=== PATIENT | female | born 1955 | race Caucasian/White ===

== ENCOUNTER 2018-05-05 11:17 | Inpatient (IN) | payer MEDICARE ==
[~2018-05-05] VITALS: Ht 177.8 cm; Wt 90.3 kg
--- NOTE | ~2018-05-05 | HP ---
PATIENT: DOM MENDIOLA MEDICAL RECORD: [id number] ACCOUNT: [id number] LOCATION:[facility].2106 : 54 ADMISSION DATE: 05/06/18 PCP: LORAINE MONGE MD HISTORY AND PHYSICAL EXAMINATION CHIEF COMPLAINT: Abdominal pain. HISTORY OF PRESENT ILLNESS: A 62-year-old white female patient of mine seen in the clinic today for abdominal pain. The patient was actually seen by me in clinic last Saturday for routine followup, doing fine at that time. She did get a flu shot, went home, started feeling bad that evening. Reports nausea, vomiting, abdominal pain, fever up to 102 over the weekend. Pain has been off and on, not getting any better, still running fever of 102. She was seen at walk-in clinic yesterday. Flu was negative at that time. White count was normal. The patient was encouraged to push fluids and follow up with me today. This morning again, she is having headache, nausea, vomiting, running fever, although she was afebrile in clinic, so at this time, we will admit for further workup. PAST MEDICAL HISTORY: History of stroke, osteoarthritis, depression, hypertension, hyperlipidemia and type 2 diabetes. PAST SURGICAL HISTORY: The patient has had a total hysterectomy, had a colonoscopy in August, did show some diverticula. MEDICATIONS: Lisinopril with hydrochlorothiazide 20/25 one tab daily, Plavix 75 mg a day, Lipitor 40 mg a day, metformin 1000 mg twice a day, citalopram 40 mg a day, Victoza 1.8 mg every day IM, and aspirin 81 mg a day. ALLERGIES: BACTRIM. SOCIAL HISTORY: The patient is , nonsmoker. Lives with , has 2 children. No alcohol. FAMILY HISTORY: Nonsignificant. REVIEW OF SYSTEMS: Positive for fever, positive for chills. Positive for nausea, vomiting, abdominal pain. Negative for chest pain, shortness of breath, cough, or wheeze. PHYSICAL EXAMINATION: GENERAL: No acute distress. Does appear somewhat ill. HEENT: Normocephalic, atraumatic. NECK: Supple. LUNGS: Clear to auscultation bilaterally. CARDIOVASCULAR: Regular rate and rhythm, no murmur. ABDOMEN: Soft, diffuse tenderness to palpation. Bowel sounds hypoactive. MUSCULOSKELETAL: Right-sided weakness. SKIN: Petechia to right upper extremity. NEUROLOGIC: Awake, alert, oriented times 3. ASSESSMENT AND PLAN: 1. Abdominal pain. 2. Dehydration. 3. Fever. HISTORY AND PHYSICAL [id number] DOM MENDIOLA PLAN: Admit the patient to the hospital for observation and further workup as per orders. TRANSINT:[id number] Voice Confirmation ID: [id number] DOCUMENT ID: [id number] LORAINE MONGE MD at 1336 CC: [id number] DICTATION DATE: 05/05/18 1037 CLINICAL CARE MANAGER: 05/05/18 1111 DIS IN 05/07/18 [id number] [place] [address]
[2018-05-05 12:00] VITALS: BP 108/61
[2018-05-05 12:23] VITALS: BP 108/61; BMI 28.6
[2018-05-05 14:33] LABS: BASOPHILS 0 % (0-2); EOSINOPHILS 0.2 % (0-7); HEMATOCRIT 33.4 % (36.0-48.0); HEMOGLOBIN 11.4 g/dL (12-16); LYMPHOCYTES 4.6 % (15-50); MCH 29.8 pg (26.0-34.0); MCHC 34.1 g/dL (31.0-37.0); MCV 87.4 fL (80.0-100.0); MEAN PLATELET VOLUME 10.1 fL (7.4-10.4); MONOCYTES 13.9 % (2-11); NEUTROPHILS 81.3 % (40-80); PLATELET COUNT 114 10x3/uL (130-400); RBC 3.82 10x6/uL (4.00-5.40); RDW 13.9 % (11.5-14.5); WBC 4.3 10x3/uL (4.8-10.8)
[2018-05-05 14:51] LABS: ALBUMIN 2.8 g/dL (3.4-5.0); ANION GAP 11.4 mmol/L (8-16); BILIRUBIN - TOTAL 0.51 mg/dL (0.2-1.3); CALCIUM 8.6 mg/dL (8.5-10.1); CARBON DIOXIDE 27.2 mmol/L (21.0-32.0); POTASSIUM - SERUM 3.6 mmol/L (3.5-5.1); PROTEIN - SERUM 6.4 g/dL (6.4-8.2)
[2018-05-05 15:56] VITALS: BP 113/56
[2018-05-05 17:01] LABS: APPEARANCE CLEAR (CLEAR); COLOR YELLOW (YELLOW); NITRITE NEGATIVE (NEGATIVE); PROTEIN 1+ mg/dL (NEGATIVE); SPECIFIC GRAVITY 1.025 (1.005-1.020)
[2018-05-05 17:02] LABS: BILIRUBIN NEGATIVE (NEGATIVE); GLUCOSE NEGATIVE (NEGATIVE); KETONE NEGATIVE (NEGATIVE); UROBILINOGEN NORMAL (NORMAL)
[2018-05-05 17:19] LABS: BACTERIA MANY /hpf (NONE SEEN); RED CELLS - URINE 0-5 /hpf (0-5)
[2018-05-05] MEDS ORDERED: PRINZIDE 20/12.1 TA1 PO (20:49)
[2018-05-05] MEDS ORDERED: ZOFRAN ODT4 MG/UDTAB PO (20:50)
[2018-05-05] MEDS ORDERED: LIPITOR40 MG PO (20:51)
[2018-05-05] MEDS ORDERED: PLAVIX75 MG PO (20:51)
[2018-05-05] MEDS ORDERED: CELEXA40 MG PO (20:51)
[2018-05-05] MEDS ORDERED: GLUCOPHAGE1000 MG PO (20:52)
[2018-05-05] MEDS ORDERED: POLYTRIM EYE DR10 ML LEFT EYE (20:52)
[2018-05-05] MEDS ORDERED: CENTRUM SILVER1 EAC3 PO (20:53)
[2018-05-05] MEDS ORDERED: BENADRYL50 MG PO (20:54)
[2018-05-05 21:53] VITALS: BP 106/52
[2018-05-05] MEDS ORDERED: VICTOZA0.6 MG/0.1 SC (23:52)
[2018-05-06 05:29] LABS: BASOPHILS 0 % (0-2); EOSINOPHILS 0.6 % (0-7); IMMATURE GRANULOCYTES 0.3 % (0-5); LYMPHOCYTES 11.1 % (15-50); MCH 29.6 pg (26.0-34.0); MCHC 33.7 g/dL (31.0-37.0); MCV 87.8 fL (80.0-100.0); MEAN PLATELET VOLUME 10.4 fL (7.4-10.4); MONOCYTES 13.9 % (2-11); NEUTROPHILS 74.1 % (40-80); PLATELET COUNT 101 10x3/uL (130-400); WBC 3.3 10x3/uL (4.8-10.8)
[2018-05-06 05:52] LABS: HEMATOCRIT 26.7 % (36.0-48.0); RBC 3.04 10x6/uL (4.00-5.40)
[2018-05-06 06:20] LABS: ALBUMIN 2.1 g/dL (3.4-5.0); ANION GAP 15.7 mmol/L (8-16); BILIRUBIN - TOTAL 0.29 mg/dL (0.2-1.3); CALCIUM 7.1 mg/dL (8.5-10.1); CARBON DIOXIDE 23.1 mmol/L (21.0-32.0); CREATININE - SERUM 1.6 mg/dL (0.6-1.3); POTASSIUM - SERUM 3.8 mmol/L (3.5-5.1)
[2018-05-06 06:56] VITALS: BP 110/63
[2018-05-06 09:03] VITALS: BP 107/60
[2018-05-06 11:13] VITALS: BP 121/65
[2018-05-06 11:43] LABS: % SATURATION 9 % (15-55); IRON 13 ug/dl (35-150); TOTAL IRON BIND CAPACITY 137 ug/dl (260-445); UNSAT IRON BIND CAPACITY 124 ug/dl (150-375)
[2018-05-06 12:03] LABS: CARBON DIOXIDE 21.4 mmol/L (21.0-32.0)
[2018-05-06 12:07] LABS: ANION GAP 11.8 mmol/L (8-16); POTASSIUM - SERUM 3.2 mmol/L (3.5-5.1)
[2018-05-06 12:09] LABS: CALCIUM 5.6 mg/dL (8.5-10.1)
[2018-05-06 16:12] VITALS: BP 126/71
[2018-05-06 22:48] VITALS: BP 113/60
[2018-05-07 08:19] LABS: FOLATE (FOLIC ACID) - SERUM 19.6 ng/mL (>3.0)
[2018-05-07 09:00] VITALS: BP 123/68
[2018-05-07 12:08] VITALS: Ht 177.8 cm; Wt 90.3 kg
[2018-05-07 12:12] VITALS: BP 126/65
[2018-05-07] MEDS ORDERED: PROTONIX40 MG PO (12:30)
[2018-05-07] MEDS ORDERED: MIRALAX17 GM PO (12:30)
[2018-05-07] MEDS ORDERED: LEVAQUIN750 MG PO (12:30)
== END 2018-05-07 16:05 | disposition home or self-care (01) | DRG 683 ==
LOC: D.M2 11:17 → OBSVTIME 11:17 → D.M2 05-06 16:45
PROVIDERS: Family Medicine; Internal Medicine Nephrology
DX: N17.9 Acute kidney failure, unspecified (principal); N39.0 Urinary tract infection, site not specified; E44.0 Moderate protein-calorie malnutrition; E86.0 Dehydration; I10 Essential (primary) hypertension; E78.5 Hyperlipidemia, unspecified; E11.9 Type 2 diabetes mellitus without complications; M19.90 Unspecified osteoarthritis, unspecified site; F32.9 Major depressive disorder, single episode, unspecified; D64.9 Anemia, unspecified; Z68.28 Body mass index [BMI] 28.0-28.9, adult; K59.00 Constipation, unspecified; R16.0 Hepatomegaly, not elsewhere classified; Z86.73 Personal history of transient ischemic attack (TIA), and cerebral infarction without residual deficits

== ENCOUNTER 2021-02-02 10:49 | Outpatient (CLI) | payer OTHER ==
[~2021-02-02] VITALS: Ht 177.8 cm; Wt 88.2 kg
[~2021-02-02 10:49] MED LIST: BENADRYL50 MG PO; CELEXA40 MG PO; CENTRUM SILVER1 EAC3 PO; GLUCOPHAGE1000 MG PO; LEVAQUIN750 MG PO; LIPITOR40 MG PO; MIRALAX17 GM PO; PLAVIX75 MG PO; POLYTRIM EYE DR10 ML LEFT EYE; PRINZIDE 20/12.1 TA1 PO; PROTONIX40 MG PO; VICTOZA0.6 MG/0.1 SC; ZOFRAN ODT4 MG/UDTAB PO
[2021-02-02 12:07] VITALS: BP 117/73; Ht 177.8 cm; Wt 88.2 kg
[2021-02-02 12:11] LABS: HEMATOCRIT 41.2 % (36.0-48.0); HEMOGLOBIN 13.5 g/dL (12-16); MCH 27.9 pg (26.0-34.0); MCHC 32.7 g/dL (31.0-37.0); MCV 85.3 fL (80.0-100.0); MEAN PLATELET VOLUME 8.4 fL (7.4-10.4); RBC 4.83 10x6/uL (4.00-5.40); RDW 15.6 % (11.5-14.5); WBC 4.6 10x3/uL (4.8-10.8)
[2021-02-02] MEDS ORDERED: OZEMPIC1 MG/0.75 SC (12:15)
[2021-02-02] MEDS ORDERED: FARXIGA10 MG PO (12:16)
[2021-02-02 12:19] LABS: ANION GAP 15.2 mmol/L (8-16); CALCIUM 9.3 mg/dL (8.5-10.1); CARBON DIOXIDE 24.2 mmol/L (21.0-32.0); POTASSIUM - SERUM 4.4 mmol/L (3.5-5.1)
--- NOTE | 2021-02-02 14:17 | NUR ---
1400 IV REMOVED AND PRESSURE. INSTRUCTIONS GIVEN
== END 2021-02-02 14:25 | disposition home or self-care (01) ==
LOC: D.MRI 10:49
PROVIDERS: Anesthesiology; ATTEND Family Medicine
DX: M25.532 Pain in left wrist (principal)